=== PATIENT | female | born 1950 | race Caucasian/White ===

== ENCOUNTER → 2022-02-20 | Outpatient (CLI) | payer MEDICARE, OTHER ==
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
== END | disposition home or self-care (01) ==
LOC: RADCTMAIN 16:46
PROVIDERS: ATTEND Orthopaedic Surgery
DX: M48.061 Spinal stenosis, lumbar region without neurogenic claudication (principal); M51.36 Other intervertebral disc degeneration, lumbar region
CPT/HCPCS: 72131

== ENCOUNTER → 2022-05-05 | Outpatient (CLI) | payer MEDICARE, OTHER | END | disposition home or self-care (01) | LOC: LABPAT 09:56 | PROVIDERS: ATTEND Orthopaedic Surgery | DX: Z01.812 Encounter for preprocedural laboratory examination (principal); M47.816 Spondylosis without myelopathy or radiculopathy, lumbar region; Z22.322 Carrier or suspected carrier of Methicillin resistant Staphylococcus aureus | CPT/HCPCS: 87070 ==

== ENCOUNTER 2022-05-13 07:55 | Day surgery (SDC) | payer MEDICARE, OTHER ==
[2022-05-08 15:29] VITALS: BMI 37.5
--- NOTE | 2022-05-12 14:09 | P.HPOR ---
History of Present Illness H&P Date: 05/07/22 .D:Date: 05/07/22 : 02:11pm .T:Title: [facility] History and Physical Date of :[birth year] Age: 71 year Height: 5'3" Weight: 212 lbs BP:122/72 BMI: 37.55 kg/m2 Occupation: Retired VAS: 0 CHIEF COMPLAINT: Recheck low back pain DOI:Chronic DOS: None Duration of current treatment regiment: >1 year HISTORY: Xrays No new xrays taken in office Trauma or injury No Work-Related No Pain description aching, sharp. Location posterior diffuse Patient notes that their pain radiates to bilateral lower extremities Activity Modification yes Hand Dominance right TREATMENTS COMPLETED: 6 weeks of PT completed? Month and Year of last PT date? 2020 Yes How many sessions? 12 Did it help? No Physician recommended home exercise completed? Duration of HEP course: Current yes Patient has trialed the physician directed home exercise program for (without) relief of their symptoms. Medications yes List: Tramadol, Tylenol without relief of her symptoms. Alternative interventions Chiropractic: Massage therapy: No R.I.C.E: No Brace: No Injections No RFA: No SUBJECTIVE: Ms. Gaytan returns to the office for a recheck of their planned L4-S1 decompression and fusion. Patient reports no changes to her symptoms since the time of the last appointment. The patient continues to complain of continued low back pain into the right lower extremity. Overall the patient has seen a progressive increase in symptoms since their onset. Ms. Gaytan symptoms are exacerbated with prolonged standing and ambulation. Overall the patient has seen a progressive increase in symptoms since their onset. Patient is having severe sleep disturbances as well due to their ongoing pain and associated symptoms. Regarding treatments, the patient has previously trialed all abovementioned treatment modalities without relief. Patient denies trialing any other mo dalities at this time. For their symptoms, the patient has been taking Tramadol and . Otherwise the patient denies any f/c/sob/cp, no bladder or bowel retention/incontinence, no perineal numbness/tingling, and ambulates independently. HISTORY: Ms. Gaytan returns to the office on 02/14/22 to discuss possible surgical intervention for her low back. Since the time of the last appointment the patient reports no improvements to her symptoms, noting continued low back pain into the right lower extremity. Overall the patient has seen a progressive increase in symptoms since their onset. Ms. Gaytan symptoms are exacerbated with prolonged standing and ambulation, due to this they notes that it is increasingly difficult for Ms. Gaytan to complete many of their daily tasks. Patient is having severe sleep disturbances as well due to their ongoing pain and associated symptoms. Regarding treatments, the patient has previously trialed all abovementioned treatment modalities without relief of her symptoms. Patient denies trialing any other modalities at this time. Otherwise the patient denies any f/c/sob/cp, no incision concerns, no bladder or bowel retention/incontinence, no perineal numbness/tingling, and ambulates independently. Ms. Gaytan last returned to the office on 01/22/2022 for a recheck of their low back pain. Since the time of the last appointment the patient reports continued lumbar pain ongoing for 6 years with no known injury or trauma to indicate an exact onset of their symptoms. In addition to their lumbar pain, they do report that it radiates into the right lower extremity, associated without numbness and tingling through the leg. Furthermore the patient reports that Overall the patient has seen a progressive increase in symptoms since their onset. Ms. Gaytan symptoms are exacerbated with prolonged standing and activity, due to this they notes that it is increasingly difficult for Ms. Gaytan to complete many of their daily tasks. Patient is having severe sleep disturbances as well due to their ongoing pain and associated symptoms. Regarding treatments, the patient has previously trialed all abovementioned treatment modalities. Patient denies trialing any other modalities at this time. Otherwise the patient denies any f/c/sob/cp, no incision concerns, no bladder or bowel retention/incontinence, no perineal numbness/tingling, and ambulates independently. Ms. Gaytan was last seen on 08/01/2020 regarding low back pain. Patient denies any specific injury. She states that she has had intermittent back pain for 6 years. She reports low back pain that radiates into her right hip and into her right thigh and knee. She notes groin pain. She had a previous right hip steroid injection under fluoroscopy with minimal relief. She had 3 previous lumbar spine steroid injections with minimal relief. Patient is currently in physical therapy with some relief. Patient is ambulating with a cane. She states she completed 24 visits of PT with improvement, although marginal. She states difficulty still with bending and lifting as this causes strain on her back. She has pain in her hip as well that goes into her groin and does not seem to improve with PT, and actually gets worse. She denies any bowel or bladder issues. She denies any pain down the legs into the feet. No new numbness/tingling. No other issues. This 70 year old female initially presented on 05/02/2021 with low back pain. Patient denies any specific injury. She states that she has had intermittent back pain for 6 years. She reports low back pain that radiates into her right hip and into her right thigh and knee. She notes groin pain. She had a previous right hip steroid injection under fluoroscopy with minimal relief. She had 3 previous lumbar spine steroid injections with minimal relief. Patient is currently in physical therapy with some relief. Patient is ambulating with a cane. The patients' past social, medical, family, surgical history, as well as review of systems, have been reviewed. Please refer to the Neurosurgery History and Physical form that has been scanned in to our electronic medical record system. 16 points review of systems completed and as stated in HPI, all other systems reviewed are negative. Social History: Reviewed, see appropriate section of the chart for details. P3 Social History: Smoking: former smoker P3 Smoking Quit Date: 1981 Alcohol: occasional alcohol P3 Family History: Reviewed, see appropriate section of the chart for details. P2 Past Medical History: Reviewed, see appropriate section of the chart for details. [id number] Medications: Rx: albuterol sulfate HFA 90 mcg/actuation aerosol inhaler Ref: 0 Rx: amLODIPine 5 mg tablet Ref: 0 Rx: atorvastatin 20 mg tablet Ref: 0 Rx: escitalopram 10 mg tablet Ref: 0 Rx: omeprazole magnesium 20 mg capsule,delayed release Ref: 0 Rx: triamterene 50 mg capsule Ref: 0 Rx: traMADol Ref: 0 P1 PHYSICAL EXAMINATION: General: Awake, alert, appropriate for age, in no acute distress. HEENT: No unusual neck masses around region of lateral neck triangle, thyroid, supraclavicular groove Extremities: Skin warm and dry without acute lesions, coloration, temperature, skin intact, no tenderness or erythema Integument: Hairy patches: ABSENT Dorsal skin dimples: ABSENT Cafe au lait spots: ABSENT Palpation: Please see Pain drawing on Intake sheet for further detail. Midline spinal tenderness: YE6es, through lumbar region Cervical Tenderness: No E6 Paralumbar tenderness: No E6 Parathoracic tenderness: No E6 Buttocks tenderness: No E6 Sacroiliac Tenderness: No Palpable stepoff at L4-L5 POSTURAL and MUSCULO-SKELETAL EVALUATION: Coronal Balance: NEUTRAL Recumbent testing: Patient is able to lay flat on back Sagittal Balance: NEUTRAL Shoulder Profile: LEVEL Pelvic Girdle: LEVEL Neck ROM: UNRESTRICTED Lumbar ROM: RESTRICTED Shoulder ROM: Symmetrical Hip ROM: Symmetrical Knee ROM: Symmetrical Hands: Normal appearance, symmetrical Feet: Normal appearance, Symmetrical VASCULAR STATUS : LEFT RIGHT Wrist Pulses INTACT INTACT Pedal Pulses (Dors. pedis & post.tibialis) INTACT INTACT Color NORMAL NORMAL Edema Absent Absent NEUROLOGIC EXAMINATION: Mental Status:Awake and alert, fully oriented, with normal attention, concentration and memory, and fluent, appropriate speech. Cranial Nerves: I: Olfactory not tested. II: Visual acuity normal, no visual field deficit noted with confrontation. III,IV: Normal pupillary reflexes & intact extraocular movements without nystagmus. V,: Intact symmetrical facial sensation. VII: Intact symmetrical facial motor movement VIII: Hearing intact. IX,X: Intact gag, swallow, & normal voice. XI: Sternocleidomastoid, trapezius function intact. XII: Tongue midline with normal movements. L'hermitte's Sign: Negative / absent Spurling'Sign: Absent bilaterally. Cubital percussion test: Absent bilaterally. Benito-Tinel sign - Carpal region: Absent bilaterally. Straight Leg Raising: Absent bilaterally. Crossed straight leg raise: negative O8 MOTOR EXAM (0-5/5, N/T) UPPER EXTREMITY Shoulder Abduction Biceps Triceps Wrist Extension Hand Intrinsics Stained Glass Window Designer Right 5/5 5/5 5/5 5/5 5/5 5/5 Left 5/5 5/5 5/5 5/5 5/5 5/5 LOWER EXTREMITY Hip Flexion Knee Extension Knee Flexion DF PF EHL FHL Right 4/5 4/5 4/5 4/5 4/5 5/5 5/5 Left 4/5 4/5 4/5 4/5 45 5/5 5/5 REFLEXES(0-4/2, NT)Upper ExtremityLower Extremity Right 2 2 Left 2 2 Pathological Reflexes RIGHT LEFT Benito's Absent Absent Clonus Absent Absent Babinski Absent Absent # Indicates mechanical impairment Muscle appearance: Symmetrical, without signs of atrophy or dystrophy. Sensory system (0-4, N/T) Test type RU MICHAEL RL LL Joint-Position 2 2 2 2 Vibration 2 2 2 2 Pain & LT sense 2 2 2 2 Dermatomal Deficit: None None None None Gait and Functional Evaluation: Ambulatory aids: Independent Romberg's test: Intact bilaterally Toe heel walk / heel-toe walk intact while maintaining satisfactory balance? yes Squatting/straightening w/o assistance to a min of 60 degree knee flexion? No Single leg stance: intact Trendelenburg sign negative bilaterally Hand and finger dexterity intact bilaterally? yes Disdiadochokinesis examination negative bilaterally? yes RADIOGRAPHIC STUDIES: XRay 5 views taken on 01/22/22 at [facility] of Lumbar Spine and Pelvis: this images are reviewed and demonstrates spondylolisthesis grade 1 to grade 2 of L4 on L5. This measures in flexion and extension films to go from 8.8 mm standing to 12.75 mm in flexion. There is foraminal stenosis related to this. L5-S1 shows spondylosis as well as disc height collapse at L4 5 and L5-S1. There is facet hypertrophy as well as facet arthrosis noted to this area. No acute fracture or dislocation is otherwise noted. AP pelvis demonstrates a congruent pelvis good hip replacement on the right with hardware placement and good position no fracture or dislocation XRay 5 views taken on 05/02/2020 at [facility] of Lumbar Spine and Pelvis: AP lateral flexion extension films of the lumbar spine obtained and reviewed in the office today. This demonstrates a grade 2 spondylolisthesis of L4 5. There is spondylosis at L5-S1. There is accentuation of the slip on flexion films and slight reduction and extension films. Overall alignment is fairly well maintained and sagittal coronal planes otherwise. There are no fractures to secretions or lesions noted. 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 There are no fractures or dislocations noted. The pelvis is level. MRI without contrast from 05/02/2019 at [facility] reveals: MRI demonstrates listhesis of L4 5 grade 2 with foraminal as well as central stenosis.There is grade I-II spondylolisthesis of L5-S1 as well. L4-5 measures 6 mm and L5-S1 measures 4 mm translation anterior. There is stenosis related to this as well as ligamental hypertrophy, facet hypertrophy and overgrowth. There are boggy facets at these levels as well. No fractures noted. No lesions noted. IMPRESSION: It was my pleasure to have seen and examined Emily. I reviewed the patient's clinical syndrome, physical findings, and imaging studies during the appointment today. It is my impression that the patient has a diagnosis of. 1. L4-S1 spondylosis with radiculopathy 2. L4-L5 and L5-S1 Grade 2 spondylolisthesis 3. neurogenic claudication 4. Mechanical low back pain I outlined the natural course history without intervention and various interventional options. PLAN: Based on my findings I suggest the following course of action: -Advised patient to continue with supplements, health maintenance, and home exercise programs. Patient expressed understanding and will continue with these modalities. -I discussed treatment options with the patient, including operative and non- operative options, and they have elected to proceed with the following surgical procedure: lumbar (L4-S1) Open Decompression and Fusion The indications, risks, benefits, and alternatives to surgery were discussed with the patient at length. Specifically (but not limited to) the risks of infection, stiffness, recurrence of symptoms, need for revision surgery, local n umbness, neurovascular injury, and blood clots were discussed. The patient's questions were answered.The patient would like to proceed with scheduling the abovementoioned procedure. All questions and concerns were addressed. -CT of the lumbar spine w/o for bony anatomy and surgical planning Pre-op Checklist -Pt needs to be cleared by PCP, cardio , pulmonary and heme/once within 1 month of surgery as well as any other providers that they see on a regular basis (dental hygiene professor, upholstery instructor, etc.) -Pt will obtain pre operative labs -Pt will optimize their diet, exercise and lifestyle preoperatively as outlined in Health Maintenance education form given to pt. -If applicable, pt will have stopped any nicotine products at least 4 weeks prior to surgery and commit to at least 3 moths post surgery without any of these products. -Discussion of risks and benefits as outlined in the Spine Surgery Risk Review Spine Surgery Risk Review Ms. Gaytan is presenting for evaluation of low back pain. It was my pleasure to have seen and examined Ms. Gaytan. In our visit today we have had a chance to go over subjective complaints, physical examination findings and treatments including the natural course history without intervention and various interventional options. The patients imaging demonstrates: XRay 5 views taken on 01/22/22 at [facility] of Lumbar Spine and Pelvis: this images are reviewed and demonstrates spondylolisthesis grade 1 to grade 2 of L4 on L5. This measures in flexion and extension films to go from 8.8 mm standing to 12.75 mm in flexion. There is foraminal stenosis related to this. L5-S1 shows spondylosis as well as disc height collapse at L4 5 and L5-S1. There is facet hypertrophy as well as facet arthrosis noted to this area. No acute fracture or dislocation is otherwise noted. AP pelvis demonstrates a congruent pelvis good hip replacement on the right with hardware placement and good position no fracture or dislocation XRay 5 views taken on 05/02/2020 at [facility] of Lumbar Spine and Pelvis: AP lateral flexion extension films of the lumbar spine obtained and reviewed in the office today. This demonstrates a grade 2 spondylolisthesis of L4 5. There is spondylosis at L5-S1. There is accentuation of the slip on flexion films and slight reduction and extension films. Overall alignment is fairly well maintained and sagittal coronal planes otherwise. There are no fractures to secretions or lesions noted. 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 There are no fractures or dislocations noted. The pelvis is level. MRI without contrast from 05/02/2019 at [facility] reveals: MRI demonstrates listhesis of L4 5 grade 2 with foraminal as well as central stenosis.There is grade I-II spondylolisthesis of L5-S1 as well. L4-5 measures 6 mm and L5-S1 measures 4 mm translation anterior. There is stenosis related to this as well as ligamental hypertrophy, facet hypertrophy and overgrowth. There are boggy facets at these levels as well. No fractures noted. No lesions noted. On physical exam, Ms. Gaytan demonstrates restricted lumbar ROM including flexion/extension/twisting due to pain. Patient does also demonstrate bilateral lower extremity weakness which is impacting her ability to complete most functional testing. Patient ambulating independently. I have explained to the patient that as their condition progresses it will cause further neurological deficits and eventual paralysis. Based on the patients imaging, physical exam, and the rapid progression and disabling nature of their symptoms, at this time I recommend surgery in the form or a: lumbar (L4-S1) Decompression and Fusion . I discussed the risk and benefits of this procedure at length with Ms. Gaytan. The patient agreed to considered pursuing the procedure abovementioned. Prior to surgery, she should follow up with her PCP (Cardio, ID, IM etc) for clearance. Questions were invited and answered, and the patient wishes to proceed as outlined below. Currently, I am recommendin.lumbar (L4-S1) Open Decompression and Fusion 2.Follow up with PCP for surgical clearance 3.Review of surgical risks and benefits as well as an educational packet on the proposed surgical procedure. Risks: All surgical procedures come with inherent risks, including those related to positioning, anesthesia, intraoperative findings, and postoperative complications. It is important to understand that surgery does not come with any guarantee of a successful outcome as complications and adverse events are always possible. The patient was given a handout in office today discussing the surgical procedure and risks associated with the intervention, both of which were discussed with the patient. These risks include but are not limited to the following: * Experiencing same, different or even worse symptoms in back, neck, arms, or legs compared to before surgery. Requiring further surgery or other forms of treatment presently or at some time in the future at same or other levels of the intended spine surgery. On an extreme but fortunately relatively rare basis severe complication such as blindness, stroke, heart attack, temporary and/or permanent nerve injury, paralysis, coma, or may occur, sometimes without known explanation. Surgical complications may include but are not limited to risk of infection, fluid accumulation in the surgical dissection site, including a seroma or hematoma, that requires additional surgery, wound drainage, bleeding, new numbness or weakness, vision changes/loss, spinal fluid leakage, non-healing and/or infected incision, headaches, difficulty or inability to swallow, hoarseness, hemopneumothorax, pneumothorax, impotence, retrograde ejaculation, vaginal dryness; injury to nerves, spinal cord, blood vessels, lymphatics or other vital organs (i.e., bowel injury, injury to the great vessels); heterotopic bone formation; complications related to the hardware such as screws, rods, cages including misplaced hardware, device failure, instrumentation at the wrong spine level, hardware fracture/breakage, or hardware loosening; vertebral failure of the spinal column above or below the newly placed hardware; retained surgical instrumentations or devices and the need for further surgery. * Medical risks of the planned spine surgery include but are not limited to generalized Infections to the whole body or local areas outside of the surgical site (sepsis), heart attack, bleeding, anaphylaxis, meningitis, seizure, epilepsy, hearing loss, burn christianson, laceration of the head or other areas of the body, bruising, hypersensitivity of the skin, bladder over distension; allergic reaction; shoulder injury related to positioning; fat, blood and air clots to other areas of the body like heart, lungs, brain; failure of internal organs such as lungs, kidneys, liver and excessive bleeding. If blood transfusions are necessary, note that transfusions may cause intolerance reactions such as anaphylaxis or other complex reactions. Despite best efforts, the results of spine surgery might not heal in terms of bone, soft tissues such as skin, fascia, ligaments, and joints. Additionally, in order to achieve best possible results, spine surgery may be carried out beyond the initially planned levels and involve decompression, fusion including insertion of hardware at levels other than the original intended area of surgical interest change some portions of the procedure in order to ensure the best possible outcomes. With spine surgery and spinal fusion, there are different off label uses of instrumentation (devices, implants and hardware) as well as biological substances (bone morphogenic proteins, demineralized bone matrix) as well as using extra bone from allograft sources (i.e. cadaver bone) or autograft (iliac crest bone, ribs, or the spine itself). The patient has been given information about these practices and their inherent risks and benefits. [facility] is an educational center that serves as a training facility for neurosurgical and orthopedic [employer] and Nursing students. Physician assistants are medically trained surgical providers who function in the outpatient, inpatient, and operating room setting under the direct supervision of the attending surgeon. [facility] has multiple operating rooms with single and overlapping rooms running daily. They currently function under the required guidelines as produced by the Senate Finance Committee with regards to the overlapping rooms and will continue to comply with changes to this policy as they occur. The requirements include and are complied with as follows: (1) the critical portions of the overlapping rooms will not occur at the same time, (2) the attending physician will be physically present during the critical portions of the procedure and immediately available during the entire case, and (3) a back-up attending is designated should the primary attending not be immediately available. The patient has had a chance to review all the listed information, has been given print outs detailing this information, and has had all his/her questions answered to their satisfaction. It was my pleasure to have seen and examined Ms. Gaytan. In our visit today we have had a chance to go over my understanding of our patient's current condition, the natural course history without intervention and various interventional options. Questions were invited and answered, and the patient wishes to proceed as outlined above. I have seen and examined the patient for 25 minutes and we have spent more than 50% of the time in repeat and detailed counseling about the patient's condition, its natural course history with out and as much as can be predicted with surgery and re-review of various surgical treatment options. In conclusion, Ms. Gaytan requested we proceed with the above suggested surgery and are willing to accept risks and limitations of the suggested surgery as nature of the disease process and our best attempts at treatment for the condition. Thank you again for allowing us to be part of your patient's care. Please don't hesitate to contact me if you have any further questions. Signed and authenticated by: Darshan Mayes DO Follow-up: 2 weeks post-op Patient Education: (Informational booklet, instructions, etc) given at today's appointment: Yes .ED:Patient Education: Y Plan at next visit: review progress Medications Reviewed: YES In our visit today Ms. Gaytan and I have had a chance to go over my understanding of the patient's current condition, the natural course history without intervention and various interventional options. Questions were invited and answered, and the patient wishes to proceed as outlined above. I will be sure to keep you updated afterMs. Gaytan returns here for further follow-up. Thank you again for your referral. Please do not hesitate to contact me if you have any further questions. Signed and authenticated by: Darshan [facility] [address] [facility], [address] [address] This message is confidential, intended only for the named recipient(s) and may contain information that is privileged or exempt from disclosure under applicable law. If you are not the intended recipient(s), you are notified that the dissemination, distribution or copying of this information is strictly prohibited. If you received this message in error, please notify the sender then delete this message. Patient verbalizes understanding of the information discussed. The above note was initiated by Darshan Yang, physician recording assistant chief engineer for Dr. Darshan Mayes. This note has been reviewed by Dr. Mayes, who has made his personal changes and impressions for this document. 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, schleroderma,oral steroid Apr 2022,hx anemia with iron infusions,hx skin [id number] chemo/radiation,basal cell skin ca History of Any Multi-Drug Resistant Organisms: None Reported Past Surgical History: Joint Replacement Additional Past Surgical History / Comment(s): rt hip replacement,ema cataracts,lt knee replacement,d&c,left hand surgery,EGDs,fibroma removed left breast Past Anesthesia/Blood Transfusion Reactions: Postoperative Nausea & Vomiting (PONV) Additional Past Anesthesia/Blood Transfusion Reaction / Comment(s): states "had a vagal response w/ air induction for EGD and heart stopped for approx 5 sec".no hx blood transfusions Smoking Status: Former smoker - Past Family History Mother Family Medical History: No Reported History Medications and Allergies Home Medications Medication Instructions Recorded Confirmed Type Albuterol Inhaler [Ventolin Hfa 1 - 2 puff INHALATION Q6H PRN 05/08/22 05/08/22 History Inhaler] Atorvastatin [Lipitor] 20 mg PO DAILY 05/08/22 05/08/22 History Calcium Carbonate/Vitamin D3 1 each PO DAILY 05/08/22 05/08/22 History [Calcium 600 mg-D3 10 Mcg (400 Iu)] Escitalopram [Lexapro] 10 mg PO QAM 05/08/22 05/08/22 History Hydroxychloroquine Sulfate 200 mg PO QAM 05/08/22 05/08/22 History [Plaquenil] Magnesium 250 mg PO HS 05/08/22 05/08/22 History Omeprazole 20 mg PO QAM 05/08/22 05/08/22 History Telmisartan/Hydrochlorothiazid 1 tab PO QAM 05/08/22 05/08/22 History [Telmisartan-Hctz 80-25 mg Tab] Triamcinolone Acetonide 1 spray EA NOSTRIL DAILY 05/08/22 05/08/22 History [Triamcinolone Acetonide 0.055MG Nasal] Ubidecarenone [Co Q-10] 100 mg PO DAILY 05/08/22 05/08/22 History Vitamin E (Dl,Tocopheryl Acet) 1,000 unit PO DAILY 05/08/22 05/08/22 History [Vitamin E (1000 Iu = 450 MG)] amLODIPine [Norvasc] 5 mg PO QAM 05/08/22 05/08/22 History hydrOXYzine HCL [Atarax] 25 mg PO TID PRN 05/08/22 05/08/22 History traMADol HCL 50 mg PO DAILY PRN 05/08/22 05/08/22 History Acetaminophen Tab [Tylenol Tab] 1,000 mg PO BID PRN 05/09/22 05/09/22 History Allergies Allergy/AdvReac Type Severity Reaction Status Date / Time morphine AdvReac Itching Verified 05/08/22 15:03 Physical Examination Osteopathic Statement: *. No significant issues noted on an osteopathic structural exam other than those noted in the History and Physical/Consult.
[~2022-05-13 07:55] MED LIST: ACETAMINOPHEN TAB 500 MG TAB PO PRN; GABAPENTIN 300 MG CAP PO PRN; HYDROmorphone 0.5 MG/0.5 ML SYRINGE IVP PRN; LIDOCAINE 1% (10MG/ML) FOR IV START INTRADERMA PRN; MIDAZOLAM 2 MG/2 ML VIAL IV PRN; ONDANSETRON 4 MG/2 ML VIAL IVP ONE; ONDANSETRON 4 MG/2 ML VIAL IVP PRN; TRANEXAMIC ACID IN NACL,ISO-OS 1,000 MG in SALINE 1 100ML.BAG IVPB PRN
[2022-05-13] MEDS: DEXAMETHASONE SOD PHOSPHATE 4 MG/ML 1 ML VIAL IV ONE ×2 (08:44→17:15)
[2022-05-13] MEDS: LACTATED RINGERS 1,000 ML IV SCH ×3 (09:00→17:15)
[2022-05-13 09:06] LABS: INR 0.9 (<1.2); Partial Thromboplastin Time 24.8 sec (22.0-30.0); Prothrombin Time 9.9 sec (9.0-12.0)
[2022-05-13] MEDS ORDERED: TRANEXAMIC ACID IN NACL,ISO-OS 1,000 MG/100 ML BAG ONE (09:06)
[2022-05-13] MEDS ORDERED: PHENYLEPHRINE-0.9% NACL SYG 1,000 MCG/10 ML SYRINGE ONE (09:06)
[2022-05-13] MEDS ORDERED: ePHEDrine 50 MG/ML 1 ML VIAL ONE (09:06)
[2022-05-13] MEDS ORDERED: HYDROmorphone (PF) 1 MG/ML ONE (09:06)
[2022-05-13] MEDS ORDERED: SUCCINYLCHOLINE CHLORIDE 200 MG/10 ML VIAL IV ONE (09:06)
[2022-05-13] MEDS ORDERED: fentaNYL (PF) 50 MCG/ML 2 ML AMP ONE (09:06)
[2022-05-13] MEDS ORDERED: WATER FOR INJECTION, STERILE 10 ML VIAL IV ONE (09:06)
[2022-05-13] MEDS ORDERED: NEOSTIGMINE 1 MG/ML 10 ML VIAL ONE (09:06)
[2022-05-13] MEDS ORDERED: MIDAZOLAM 2 MG/2 ML VIAL ONE (09:06)
[2022-05-13] MEDS ORDERED: ROCURONIUM 10 MG/ML (5 ML VIAL) IV ONE (09:06)
[2022-05-13] MEDS ORDERED: GLYCOPYRROLATE 0.2 MG/ML 2 ML VIAL ONE (09:06)
[2022-05-13] MEDS ORDERED: PROPOFOL 10 MG/ML 20 ML VIAL IV ONE (09:06)
[2022-05-13] MEDS ORDERED: LIDOCAINE 2% INJ 20 MG/ML (2 ML VIAL) ONE (09:06)
[2022-05-13] MEDS ORDERED: THROMBIN (BOVINE) 5,000 UNIT VIAL TOPICAL ONE (09:11)
[2022-05-13] MEDS ORDERED: GELATIN SPONGE,ABSORB (LARGE) 1 EACH SPONGE TOPICAL ONE (09:11)
[2022-05-13] MEDS ORDERED: BUPIVACAIN-EPI 0.25%-1:200,000 30 ML VIAL SQ ONE (09:11)
[2022-05-13] MEDS ORDERED: ceFAZolin 3,000 MG in SODIUM CHLORIDE 0.9% IRRIGATIO 3,000 ML IRRIGATION ONE (10:00)
[2022-05-13] MEDS ORDERED: LACTATED RINGERS 1,000 ML IV ONE ×2 (10:15→10:28)
[2022-05-13] MEDS ORDERED: GENTAMICIN 80 MG in SODIUM CHLORIDE 0.9% IRRIGATIO 3,000 ML IRRIGATION ONE (10:31)
[2022-05-13] MEDS ORDERED: VANCOMYCIN 1,000 MG VIAL MISCELLANE ONE (11:40)
--- NOTE | 2022-05-13 13:14 | FL ---
EXAMINATION TYPE: FL guidance operating room DATE OF EXAM: 05/13/2022 HISTORY: Fluoroscopy time 62 seconds of fluoroscopy provided. IMPRESSION: 1. Fluoroscopy time.
[2022-05-13] MEDS ORDERED: HYDROmorphone 0.5 MG/0.5 ML SYRINGE IVP PRN (13:23)
[2022-05-13] MEDS ORDERED: HYDROcodone/APAP 5-325MG 1 EACH TAB PO PRN (13:23)
[2022-05-13] MEDS ORDERED: SENNOSIDES-DOCUSATE SODIUM 1 EACH TAB PO PRN (13:23)
[2022-05-13] MEDS ORDERED: MAGNESIUM HYDROXIDE 2,400 MG/10 ML CUP PO PRN (13:23)
[2022-05-13] MEDS ORDERED: HYDROmorphone 1 MG/ML 1 ML SYRINGE IVP PRN (13:23)
--- NOTE | 2022-05-13 15:55 | CT ---
EXAMINATION TYPE: CT lumbar spine wo con CT DLP: 1603.6 mGycm, Automated exposure control for dose reduction was used. DATE OF EXAM: 05/13/2022 3:34 PM COMPARISON: CT lumbar spine 02/20/2022. CLINICAL INDICATION:Female, 72 years old with history of s/p L4-S1 decompr/fusion; PHH, post op lumba r fusion TECHNIQUE: Multiple axial images were obtained from the midportion of T11 through the sacroiliac breana nts. Soft tissue and bone windows in coronal and sagittal planes were obtained and reviewed. FINDINGS: Alignment: There are 5 lumbar type vertebral bodies identified mild retrolisthesis of T12 on L1, L1 o n L2, and grade 1/2 anterolisthesis of L4 on L5 redemonstrated. Bone/soft tissues: No evidence of fracture is identified. Post surgical changes with bilateral pedic ular screws and rods and laminectomies involving L4-S1. There are associated disc fusion cages. Hardw are appears intact Posterior back skin pat with subcutaneous gas related to surgery. No organized fluid collections identified. A drainage catheter is identified with distal tip not well visualized due to streak artifact from surgical hardware. Degenerative changes of the bilateral SI joints. Discs: T12-L1: No spinal canal or neural foraminal stenosis is identified. L1-L2: No spinal canal or neural foraminal stenosis is identified. L2-L3: Disc bulge and facet joint arthropathy with mild spinal canal stenosis and mild bilateral neur al foraminal stenosis L3-L4: Disc bulge and facet joint arthropathy result in mild spinal canal stenosis and mild bilateral neural foraminal stenosis. L4-L5: Postsurgical changes with grade 1/2 anterolisthesis. No significant central canal stenosis or neural foraminal stenosis with the limitations of streak artifact. L5-S1: Postsurgical changes with no significant central canal stenosis or neural foraminal stenosis w ith the limitations of streak artifact. Other: Atherosclerotic calcification of the aorta. IMPRESSION: 1. Postsurgical changes from posterior fusion of L4-S1. Hardware appears intact. 2. Multilevel degenerative disc disease as described above.
[2022-05-13] MEDS: ACETAMINOPHEN TAB 325 MG TAB PO SCH ×2 (17:18→23:37)
[2022-05-13] MEDS ORDERED: ALBUTEROL NEBULIZED 2.5 MG/3 ML INHALATION PRN (18:07)
[2022-05-13] MEDS ORDERED: hydrOXYzine HCL 25 MG TAB PO PRN (18:07)
--- NOTE | 2022-05-13 18:11 | P.CONS ---
History of Present Illness - Reason for Consult Consult date: 05/13/22 med management - History of Present Illness Patient is a 72-year-old female with history of hypertension, dyslipidemia presenting for elective lumbar sacral decompressive surgery. [facility] physicians consulted for medical management. She claims that she has back pain post surgery. She denies any CP, SOB, abdominal pain, bowel or urinary complaints. She is a former smoker, occasional alcohol use, and denies any illicit drug use. Currently has a farrell catheter in place. Patient seen and examined at bedside. Pertinent positives and negatives as discussed in HPI, a complete review of systems was performed and all other systems are negative. Vital signs reviewed General: nontoxic, no distress, appears at stated age Derm: warm, dry, incision dry, intact, and clean, drain in place Head: atraumatic, normocephalic, symmetric Eyes: EOMI, no lid lag, anicteric sclera, pupils equal round reactive to light ENT: Nose and ears atraumatic Neck: No thyromegaly, supple Mouth: no lip lesion, mucus membranes moist Cardiovascular: S1S2 reg, no murmur, no edema Lungs: clear to auscultation bilateral, no rhonchi, no rales, no wheeze, no accessory muscle use, on 2L O2 Abdominal: soft, nontender to palpation, no guarding, no appreciable organomegaly Ext: no gross muscle atrophy, muscle strength muscle strength 5 out of 5 in all 4 extremities, no contractures Neuro: CN II-XII grossly intact Psych: Alert, oriented, appropriate affect Assessment/Plan: Status post spinal surgery -Defer pain management and DVT prophylaxis to primary surgical service Hypertension - hold home medications given lower BP Chronic medical problems: Dyslipidemia Mood disorder Scleroderma - Continue home medications Thank you for allowing us to participate in the care of this pleasant patient. Do not hesitate to contact us with questions. Someone can be reached from the [facility] hospitalist group all hours of the day at [phone] or via [employer]. 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, schleroderma,oral steroid Apr 2022,hx anemia with iron infusions,hx skin [id number] chemo/radiation,basal cell skin ca History of Any Multi-Drug Resistant Organisms: None Reported Past Surgical History: Joint Replacement Additional Past Surgical History / Comment(s): rt hip replacement,ema cataracts,lt knee replacement,d&c,left hand surgery,EGDs,fibroma removed left breast Past Anesthesia/Blood Transfusion Reactions: Postoperative Nausea & Vomiting (PONV) Additional Past Anesthesia/Blood Transfusion Reaction / Comm: states "had a vagal response w/ air induction for EGD and heart stopped for approx 5 sec".no hx blood transfusions Past Psychological History: Anxiety, Bipolar Smoking Status: Former smoker Past Alcohol Use History: Occasional Additional Past Alcohol Use History / Comment(s): quit smoking >40 yrs ago Past Drug Use History: None Reported - Past Family History Mother Family Medical History: No Reported History Medications and Allergies Home Medications Medication Instructions Recorded Confirmed Type Albuterol Inhaler [Ventolin Hfa 1 - 2 puff INHALATION Q6H PRN 05/08/22 05/13/22 History Inhaler] Atorvastatin [Lipitor] 20 mg PO DAILY 05/08/22 05/08/22 History Calcium Carbonate/Vitamin D3 1 each PO DAILY 05/08/22 05/08/22 History [Calcium 600 mg-D3 10 Mcg (400 Iu)] Escitalopram [Lexapro] 10 mg PO QAM 05/08/22 05/13/22 History Hydroxychloroquine Sulfate 200 mg PO QAM 05/08/22 05/08/22 History [Plaquenil] Magnesium 250 mg PO HS 05/08/22 05/08/22 History Omeprazole 20 mg PO QAM 05/08/22 05/08/22 History Telmisartan/Hydrochlorothiazid 1 tab PO QAM 05/08/22 05/08/22 History [Telmisartan-Hctz 80-25 mg Tab] Triamcinolone Acetonide 1 spray EA NOSTRIL DAILY 05/08/22 05/13/22 History [Triamcinolone Acetonide 0.055MG Nasal] Ubidecarenone [Co Q-10] 100 mg PO DAILY 05/08/22 05/08/22 History Vitamin E (Dl,Tocopheryl Acet) 1,000 unit PO DAILY 05/08/22 05/08/22 History [Vitamin E (1000 Iu = 450 MG)] amLODIPine [Norvasc] 5 mg PO QAM 05/08/22 05/08/22 History hydrOXYzine HCL [Atarax] 25 mg PO TID PRN 05/08/22 05/13/22 History traMADol HCL 50 mg PO DAILY PRN 05/08/22 05/13/22 History Acetaminophen Tab [Tylenol Tab] 1,000 mg PO BID PRN 05/09/22 05/13/22 History Allergies Allergy/AdvReac Type Severity Reaction Status Date / Time morphine AdvReac Itching Verified 05/13/22 08:22 STEROIDS AdvReac Unknown Uncoded 05/13/22 08:47 Physical Exam Vitals: Vital Signs Temp Pulse Pulse Resp BP BP Pulse Ox 05/13/22 15:12 79 16 98/52 95 05/13/22 14:57 77 16 96/50 94 L 05/13/22 14:42 81 16 98/53 98 05/13/22 14:27 75 16 116/53 94 L 05/13/22 14:12 77 16 155/55 95 05/13/22 13:57 78 16 106/54 95 05/13/22 13:42 80 16 122/58 100 05/13/22 13:27 97.0 F L 82 14 123/56 100 05/13/22 08:32 98.1 F 99 16 140/63 98 Intake and Output 05/13/22 05/13/22 05/13/22 06:59 14:59 22:59 Intake Total 2652 Output Total 850 200 Balance 1802 -200 Intake: IV 2652 Output: Urine 450 200 Estimated Blood Loss 400 Other: Weight 101 kg 101 kg
[2022-05-13] MEDS: HYDROcodone/APAP 10-325MG 1 EACH TAB PO PRN (21:30)
[2022-05-13] MEDS: MAGNESIUM OXIDE 400 MG TAB PO SCH (21:37)
[2022-05-14] MEDS: CYCLOBENZAPRINE 5 MG TAB PO PRN ×2 (01:39→12:19)
[2022-05-14 05:25] LABS: Basophils % (A) 0 %; Eosinophils # (A) 0.1 k/uL (0-0.7); Eosinophils % (A) 1 %; HCT 32.6 % (34.0-46.0); HGB 10.4 gm/dL (11.4-16.0); Lymphocytes # (A) 1.1 k/uL (1.0-4.8); Lymphocytes % (A) 10 %; MCH 30.6 pg (25.0-35.0); MCHC 32.1 g/dL (31.0-37.0); MCV 95.5 fL (80.0-100.0); Monocytes # (A) 0.6 k/uL (0-1.0); Monocytes % (A) 6 %; Neutrophils # (A) 8.5 k/uL (1.3-7.7); Neutrophils % (A) 80 %; Platelet Count 243 k/uL (150-450); RBC 3.41 m/uL (3.80-5.40); RDW 14.8 % (11.5-15.5); WBC 10.6 k/uL (3.8-10.6)
[2022-05-14] MEDS: ACETAMINOPHEN TAB 325 MG TAB PO SCH ×4 (05:25→23:56)
[2022-05-14 05:34] LABS: African American GFR (CKD) 86 (>60 ml/min/1.73 sqM); Anion Gap 1 mmol/L; Blood Urea Nitrogen 15 mg/dL (7-17); Calcium 8.6 mg/dL (8.4-10.2); Carbon Dioxide 33 mmol/L (22-30); Chloride 102 mmol/L (98-107); Glucose 111 mg/dL (74-99); Non-African American GFR(CKD) 75 (>60 ml/min/1.73 sqM); Potassium 3.8 mmol/L (3.5-5.1); Sodium 136 mmol/L (137-145)
[2022-05-14] MEDS: HYDROcodone/APAP 10-325MG 1 EACH TAB PO PRN ×2 (08:29→20:21)
[2022-05-14] MEDS: ATORVASTATIN 20 MG TAB PO SCH (08:29)
[2022-05-14] MEDS: CALCIUM CARB-VIT D 500 MG-5 MCG TAB PO SCH (08:29)
[2022-05-14] MEDS: PANTOPRAZOLE 40 MG TABLET PO SCH (08:29)
[2022-05-14] MEDS: ESCITALOPRAM 10 MG TAB PO SCH (08:30)
[2022-05-14] MEDS: HYDROXYCHLOROQUINE SULFATE 200 MG TAB PO SCH (08:30)
[2022-05-14] MEDS: FLUTICASONE 50MCG/SPRAY NASAL 16GM EA NOSTRIL SCH (08:32)
--- NOTE | 2022-05-14 08:42 | P.PN ---
Subjective Progress Note Date: 05/14/22 Principal diagnosis: Lumbar spondylosis L4-L5 and L5-S1 grade 2 spondylolisthesis Neurogenic claudication Patient seen and examined this morning. Patient was resting in bed. She states that her pain is managed on current regimen. Surgical incision is clean dry and intact. Hemovac present and patent, output 120 mL overnight. Patient states she has not been up since procedure. Informed patient that she will be working with physical therapy today. She needs to be up in chair for all meals. Patient verbalizes understanding. Assisted patient to her side, patient states relief of back pain. Patient denies any numbness or tingling to bilateral lower extremities. Patient has been afebrile, denies nausea/vomiting, or chest pain. Objective - Vital Signs Vital signs: Vital Signs Temp 99.1 F 05/14/22 08:00 Pulse 86 05/14/22 08:00 Resp 18 05/14/22 08:00 BP 104/46 05/14/22 08:00 Pulse Ox 92 L 05/14/22 08:00 FiO2 Intake & Output 05/13/22 05/14/22 05/14/22 18:59 06:59 18:59 Intake Total 3732 370 Output Total 1250 1720 Balance 2482 -1350 Weight 101 kg Intake: IV 2652 Intake, IV Titration 50 Amount ceFAZolin 2 gm In Sodium 50 Chloride 0.9% 50 ml @ 100 mls/hr IVPB Q8H [facility] Rx#: [id number] Oral 1080 320 Output: Drainage 220 Right Lower Back 220 Urine 850 1500 Stool 0 Estimated Blood Loss 400 Other: Voiding Method Indwelling Catheter - Exam Physical Examination General: The patient is awake and alert, in no acute distress Skin: Skin is warm and dry with no obvious rashes or lesions. Hairy patches absent, no dorsal skin dimples, no cafe au lait spots. Surgical incision to the lumbar region. Dressing is clean dry and intact. Hemovac present patent. Eye: Pupils are equal, round and reactive to light, extra-ocular movements are intact; there is normal conjunctiva bilaterally. Neck: The neck is supple, there is no tenderness and ROM intact. Cardiovascular: There is a regular rate and rhythm. No murmur, rub or gallop is appreciated. Respiratory: Lungs are clear to auscultation, respirations are non-labored, breath sounds are equal. Gastrointestinal: Soft, non-distended, non-tender abdomen. Back: There is no tenderness to palpation in the midline, paralumbar, parathoracic or buttocks region. There is no obvious deformity . Musculoskeletal: ROM limited secondary to pain and stiffness from surgical procedure. Muscle strength in all major muscle groups of bilateral upper extremities 5/5, bilateral lower extremities 4/5. Neurological: CN 2-12 intact. There are no obvious motor or sensory deficits. Movement and coordination equal and intact. Sensory exam to light touch intact C5-T1 and intact from L2-S1. Reflexes 2/4 in bilateral upper and lower extremities. Negative Hoffmans, babinski, and clonus signs. Psychiatric: Cooperative, appropriate mood & affect, normal judgment. - Labs CBC & Chem 7: 05/14/22 05:01 05/14/22 05:01 Labs: Abnormal Lab Results - Last 24 Hours (Table) 05/14/22 05/14/22 Range/Units 05:01 05:01 RBC 3.41 L (3.80-5.40) m/uL Hgb 10.4 L (11.4-16.0) gm/dL Hct 32.6 L (34.0-46.0) % Neutrophils # 8.5 H (1.3-7.7) k/uL Sodium 136 L (137-145) mmol/L Carbon Dioxide 33 H (22-30) mmol/L Glucose 111 H (74-99) mg/dL Assessment and Plan Assessment: Postop day 1: L4-S1 decompression and fusion Lumbar spondylosis L4-L5 and L5-S1 grade 2 spondylolisthesis Neurogenic claudication Plan: Plan: -Appreciate strategic consultant and team management. -Activity: Ambulate QID, OOB all meals, up and about, limit lifting bending twisting to less than 5 lbs. Use walker or cane if needed for stability. -Daily PT/OT, increase ambulation strength and balance. - LSO Brace when up and about, not needed in bed or chair -Pain control: Adequate at this time -Meds: reviewed -GI ppx: senna, Miralax -DC farrell when up and about, bedside commode if needed -DVT PPX: OK to restart Heparin tonight -Hygiene: Shower today. Maintain dressing clean and dry. Meticulous cleaning after BMs away from the incision site -Drains: Maintain for now. DC later today pending out put and PT -Encourage IS 10x/hr -Dispo: Anticipate discharge home tomorrow with homecare *I reviewed and discussed this case with my attending Dr. Mayes, whom has reviewed this chart and films and is in agreement with assessment and plan of care as outlined above. I have personally seen and examined the patient, performed the documentation and the assessment and plan as written. Number of minutes spent on the visit: 20m.
[2022-05-14] MEDS ORDERED: amLODIPine 5 MG TAB PO SCH (09:00)
--- NOTE | 2022-05-14 12:12 | P.PN ---
Subjective Progress Note Date: 05/14/22 Subjective: She is seen and examined at bedside. No acute events overnight. Claims that she still has some back soreness. Benson catheter has been discontinued. Patient is voiding, and having flatus. She denies any difficulty tolerating oral diet. She denies any chest pain, shortness of breath, abdominal pain. Pertinent positives and negatives as discussed above, a complete review of systems was performed and all other systems are negative. Vitals Signs Reviewed. General: nontoxic, no distress, appears at stated age Derm: warm, dry, incision dry, intact, and clean, drain in place Head: atraumatic, normocephalic, symmetric Eyes: EOMI, no lid lag, anicteric sclera, pupils equal round reactive to light ENT: Nose and ears atraumatic Neck: No thyromegaly, supple Mouth: no lip lesion, mucus membranes moist Cardiovascular: S1S2 reg, no murmur, no edema Lungs: clear to auscultation bilateral, no rhonchi, no rales, no wheeze, no accessory muscle use Abdominal: soft, nontender to palpation, no guarding, no appreciable organomegaly Ext: no gross muscle atrophy, muscle strength muscle strength 5 out of 5 in all 4 extremities, no contractures Neuro: CN II-XII grossly intact Psych: Alert, oriented, appropriate affect Assessment and Plan: Status post spinal surgery -Defer pain management and DVT prophylaxis to primary surgical service Hypertension - hold home medications given lower BP Chronic medical problems: Dyslipidemia Mood disorder Scleroderma - Continue home medications Thank you for allowing us to participate in the care of this pleasant patient. Do not hesitate to contact us with questions. Someone can be reached from the [facility] hospitalist group all hours of the day at [phone] or via [employer]. Objective - Vital Signs Vital signs: Vital Signs Temp 99.1 F 05/14/22 08:00 Pulse 78 05/14/22 08:50 Resp 18 05/14/22 08:00 BP 104/46 05/14/22 08:00 Pulse Ox 92 L 05/14/22 08:00 FiO2 Intake & Output 05/13/22 05/14/22 05/14/22 18:59 06:59 18:59 Intake Total 3732 370 Output Total 1250 1720 50 Balance 2482 -1350 -50 Weight 101 kg Intake: IV 2652 Intake, IV Titration 50 Amount ceFAZolin 2 gm In Sodium 50 Chloride 0.9% 50 ml @ 100 mls/hr IVPB Q8H [facility] Rx#: [id number] Oral 1080 320 Output: Drainage 220 Right Lower Back 220 Urine 850 1500 50 Stool 0 Estimated Blood Loss 400 Other: Voiding Method Indwelling Catheter - Labs CBC & Chem 7: 05/14/22 05:01 05/14/22 05:01 Labs: Abnormal Lab Results - Last 24 Hours (Table) 05/14/22 05/14/22 Range/Units 05:01 05:01 RBC 3.41 L (3.80-5.40) m/uL Hgb 10.4 L (11.4-16.0) gm/dL Hct 32.6 L (34.0-46.0) % Neutrophils # 8.5 H (1.3-7.7) k/uL Sodium 136 L (137-145) mmol/L Carbon Dioxide 33 H (22-30) mmol/L Glucose 111 H (74-99) mg/dL
--- NOTE | 2022-05-14 16:17 | P.OP ---
Date of Procedure: 05/13/22 Preoperative Diagnosis: 1. L4-5 Grade I spondylolisthesis 2. L4-S1 spondylosis 3. L4-S1 stenosis severe 4. Neurogenic claudication 5. Mechanical back pain Postoperative Diagnosis: 1. L4-5 Grade I spondylolisthesis 2. L4-S1 spondylosis 3. L4-S1 stenosis severe 4. Neurogenic claudication 5. Mechanical back pain Procedure(s) Performed: 1. L4-S1 posteriolateral and interbody fusion (19577, [id number]) 2. Segmental instrumentation L4-S1 (82799) 3. Insertion of biomechanical device L4-5 and L5-S1 ([id number]) 4. Bilateral laminectomy, complete facetectomy and foraminotomy for decompression and for deformity correction (31867, 79888) 5. Use of [employer] navigation for screw placement (01545) Use of [employer] Implants: -Globus Creo screw and mayank system -Amplify Dual X cage x1 -Autograft, allograft, MagnatOs, Anesthesia: GETA Surgeon: Darshan Mayes Medical Physicist #1: Elliott Koch (Was present and assisted in all aspects of the case from positioning to dressing placement) Estimated Blood Loss (ml): 450 IV fluids (ml): 2,500 Urine output (ml): 350 Pathology: none sent Condition: stable Disposition: PACU Indications for Procedure: Ms. Gaytan is presenting for evaluation of low back pain. It was my pleasure to have seen and examined Ms. Gaytan. In our visit today we have had a chance to go over subjective complaints, phys ical examination findings and treatments including the natural course history without intervention and various interventional options. The patients imaging demonstrates: XRay 5 views taken on 01/22/22 at [facility] of Lumbar Spine and Pelvis: this images are reviewed and demonstrates spondylolisthesis grade 1 to grade 2 of L4 on L5. This measures in flexion and extension films to go from 8.8 mm standing to 12.75 mm in flexion. There is foraminal stenosis related to this. L5-S1 shows spondylosis as well as disc height collapse at L4 5 and L5-S1. There is facet hypertrophy as well as facet arthrosis noted to this area. No acute fracture or dislocation is otherwise noted. AP pelvis demonstrates a congruent pelvis good hip replacement on the right with hardware placement and good position no fracture or dislocation XRay 5 views taken on 05/02/2020 at [facility] of Lumbar Spine and Pelvis: AP lateral flexion extension films of the lumbar spine obtained and reviewed in the office today. This demonstrates a grade 2 spondylolisthesis of L4 5. There is spondylosis at L5-S1. There is accentuation of the slip on flexion films and slight reduction and extension films. Overall alignment is fairly well maintained and sagittal coronal planes otherwise. There are no fractures to secretions or lesions noted. 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 There are no fractures or dislocations noted. The pelvis is level. MRI without contrast from 05/02/2019 at [facility] reveals: MRI demonstrates listhesis of L4 5 grade 2 with foraminal as well as central stenosis.There is grade I-II spondylolisthesis of L5-S1 as well. L4-5 measures 6 mm and L5-S1 measures 4 mm translation anterior. There is stenosis related to this as well as ligamental hypertrophy, facet hypertrophy and overgrowth. There are boggy facets at these levels as well. No fractures noted. No lesions noted. On physical exam, Ms. Gaytan demonstrates restricted lumbar ROM including flexion/extension/twisting due to pain. Patient does also demonstrate bilateral lower extremity weakness which is impacting her ability to complete most functional testing. Patient ambulating independently. I have explained to the patient that as their condition progresses it will cause further neurological deficits and eventual paralysis. Based on the patients imaging, physical exam, and the rapid progression and disabling nature of their symptoms, at this time I recommend surgery in the form or a: lumbar (L4-S1) Decompression and Fusion . I discussed the risk and benefits of this procedure at length with Ms. Gaytan. The patient agreed to considered pursuing the procedure abovementioned. Prior to surgery, she should follow up with her PCP (Cardio, ID, IM etc) for clearance. Questions were invited and answered, and the patient wishes to proceed as outlined below. Currently, I am recommendin.lumbar (L4-S1) Open Decompression and Fusion Description of Procedure: The patient was seen and examined in the preoperative area.All preoperative protocols were followed.Informed consent was obtained, risks and benefits of the procedure were discussed at length.Risks including bleeding infection damage to the surrounding tissue and risk of re-operation were discussed with the patient.Risk of anesthesia up to and including was discussed with the patient.These are outlined in the risk review.They were willing to accept these risks and all the risks of surgery.The patient was given a weight-based dose of antibiotics in the form of 2 g Ancef.The patient was seen and evaluated by the anesthesia team who deemed them fit for surgery. The site was marked, the patient was willing to proceed with the procedure.The patient was transferred to the operative suite by the Department of anesthesia. They were then drifted off to sleep by the department anesthesia and GETA was performed. The patient tolerated this well. Benson catheter was placed by nursing staff, a-traumatically. Once confirmation of lines and ventilation the patient was transferred to a prone Sameer table very carefully. All bony prominences including wrists, elbows, axilla, chest, hips, and thighs, and feet were padded very well. Special attention was paid to the genitalia, and these were padded accordingly. SCDs were placed on bilateral lower extremities and were connected. Arms were well padded and placed on arm boards up and out in the 90/90 position. Once in position, again we confirmed good ventilation capabilities and that lines were running appropriately. The patients Lumbar spine was then exposed. 1010s were placed outlining the incision site. Standard alcohol was used to clean the incision site and allowed to dry. C-arm was used to needle localize the pedicles at L4-S1 and bio-savanna the patient and confirm level for incision which was marked with a skin marker. Operative briefing was performed with all teams and everyone in agreement to proceed. The patient was then prepped and draped in a normal sterile fashion. Timeout was then performed, and all parties agreed with the procedure to be performed.Midline skin incision was made over the previously bio-marked area and dissection taken down over the SP of L3-S1. L4-S1 was taken out over facet joints and TPs and a penfield 4 used to savanna the L4 pedicle. Lateral image used to confirm levels. Once confirmed, screws were proceeded to be placed b/l at pedicles from L4-S1 using [employer] Navigation. An SP clamp was used, 3D C arm spin obtained and confirmed to be accurate. Once this was confirmed screws were placed using a navigated leah, navigated awl-tap and navigated cdl company driver. Once screws were placed they were confirmed to be in good position using AP and Lateral fluoroscopy. The wound was then irrigated. Screws were tested and all tested above 20 mA. We then proceeded to decompression and cage placement. Attention was then turned to inter-body fusion at L5-S1. Bilateral laminectomy, complete facetectomy and foraminotomy performed at L5-S1 using high speed leah and Kerrison rongure. The ligamentum was removed and dural sac decompressed. Exiting and traversing roots visualized and decompressed. Neural elements were then protected, and disc space accessed with an osteotome. Sequential shaving then done under lateral imaging and complete discectomy performed using silas, pituitary and curette. Once good bleeding endplates accomplished and good height temple with trials, a combination of autograft, allograft and synthetic placed anterior in the disc space. The cage was then selected and impacted into place under lateral imaging. The cage was then expanded restoring height, lordosis and alignment. The cage was backfilled with bone graft through a funnel. The speech pathology supervisor removed and the area inspected. Good cage placement, stable cage and no injuries. Area was irrigated copiously, and meticulous hemostasis achieved. The tubular retractor was then removed under direct visualization. Attention was then turned to inter-body fusion at L4-5. Bilateral laminectomy, complete facetectomy and foraminotomy performed at L4-5 using high speed leah and Kerrison rongure. The ligamentum was removed and dural sac decompressed. Exiting and traversing roots visualized and decompressed. Neural elements were then protected, and disc space accessed with an osteotome. Sequential shaving then done under lateral imaging and complete discectomy performed using silas, pituitary and curette. Once good bleeding endplates accomplished and good height temple with trials, a combination of autograft, allograft and synthetic placed anterior in the disc space. The cage was then selected and impacted into place under lateral imaging. The cage was then expanded restoring height, lordosis and alignment. The cage was backfilled with bone graft through a funnel. The speech pathology supervisor removed and area inspected. Good cage placement, stable cage and no injuries. Area was irrigated copiously, and meticulous hemostasis achieved. The tubular retractor was then removed under direct visualization. The wound and disc spaces irrigated and meticulous hemostasis achieved. Rods were then sized and selected and placed into S1 screws b/l. Set screws locked these in place and then sequentially reduced into L4 and L5 b/l for reduction of listhesis. This was accomplished. Set screws were then all placed and final tightened. A cross link was selected and placed and final tightened. TPs were then decorticated with high speed leah. The wound was the irrigated with 3L acne irrigation, 3L gentamicin irrigation and 3L NSS. Surgical was placed over the dura. Autograft and MagnatOs then placed in the posteriolateral gutters and impacted into place. Deep drain placed and secured to the skin. Final images confirmed good placement of hardware and good reduction of listhesis as well as temple of height and lordosis. Facia was then closed with #1 PDS. Deep subq closed with 0 Vicryl. Superficial subq closed with 2-0 Vicryl and skin with pta. Wound edges approximated very well. Wound was then cleaned with alcohol and dried. Wounds dressed with Optifoam dressings.The patient was then transferred off the table back to their hospital bed a-traumatically.They were extubated by the department of anesthesia.They were then transferred to PACU in stable condition having tolerated the procedure with no complications.
[2022-05-14] MEDS: MAGNESIUM OXIDE 400 MG TAB PO SCH (20:21)
[2022-05-15] MEDS: ACETAMINOPHEN TAB 325 MG TAB PO SCH ×2 (01:48→06:26)
[2022-05-15] MEDS: HYDROcodone/APAP 10-325MG 1 EACH TAB PO PRN (03:27)
[2022-05-15] MEDS: FLUTICASONE 50MCG/SPRAY NASAL 16GM EA NOSTRIL SCH (08:23)
[2022-05-15] MEDS: LACTATED RINGERS 1,000 ML IV SCH (08:24)
[2022-05-15] MEDS: PANTOPRAZOLE 40 MG TABLET PO SCH (08:30)
[2022-05-15] MEDS: ESCITALOPRAM 10 MG TAB PO SCH (08:30)
[2022-05-15] MEDS: HYDROXYCHLOROQUINE SULFATE 200 MG TAB PO SCH (08:30)
[2022-05-15] MEDS: CALCIUM CARB-VIT D 500 MG-5 MCG TAB PO SCH (08:30)
[2022-05-15] MEDS: ATORVASTATIN 20 MG TAB PO SCH (08:30)
[2022-05-15 08:32] VITALS: BP 81/44; PULSE 84; RESP 18; TEMP 98.7
--- NOTE | 2022-05-15 08:41 | P.PN ---
Subjective Progress Note Date: 05/15/22 Principal diagnosis: Lumbar spondylosis L4-L5 and L5-S1 grade 2 spondylolisthesis Neurogenic claudication Patient seen and examined this morning. Patient was resting in bed. She states that her pain is managed on current regimen. Surgical incision is clean dry and intact, hemovac removed and dressing has been changed. Patient states she has worked with PT and tolerated well. Patient states she feels comfortable with being discharged home with homecare. Patient denies any numbness or tingling to bilateral lower extremities. Patient has been afebrile, denies nausea/vomiting, or chest pain. Objective - Vital Signs Vital signs: Vital Signs Temp 100.2 F H 05/15/22 01:41 Pulse 85 05/15/22 01:41 Resp 20 05/15/22 01:41 BP 118/69 05/15/22 01:41 Pulse Ox 92 L 05/15/22 01:41 FiO2 Intake & Output 05/14/22 05/15/22 05/15/22 18:59 06:59 18:59 Intake Total 50 Output Total 700 280 Balance -650 -280 Intake: Intake, IV Titration 50 Amount ceFAZolin 2 gm In Sodium 50 Chloride 0.9% 50 ml @ 100 mls/hr IVPB Q8H [facility] Rx#: [id number] Output: Drainage 100 280 Right Lower Back 100 280 Urine 600 Other: Voiding Method Indwelling Catheter # Voids 1 - Exam Physical Examination General: The patient is awake and alert, in no acute distress Skin: Skin is warm and dry with no obvious rashes or lesions. Hairy patches absent, no dorsal skin dimples, no cafe au lait spots. Surgical incision to the lumbar region. Dressing is clean dry and intact. Eye: Pupils are equal, round and reactive to light, extra-ocular movements are intact; there is normal conjunctiva bilaterally. Neck: The neck is supple, there is no tenderness and ROM intact. Cardiovascular: There is a regular rate and rhythm. No murmur, rub or gallop is appreciated. Respiratory: Lungs are clear to auscultation, respirations are non-labored, breath sounds are equal. Gastrointestinal: Soft, non-distended, non-tender abdomen. Back: There is no tenderness to palpation in the midline, paralumbar, parathoracic or buttocks region. There is no obvious deformity . Musculoskeletal: ROM limited secondary to pain and stiffness from surgical procedure. Muscle strength in all major muscle groups of bilateral upper extremities 5/5, bilateral lower extremities 4/5. Neurological: CN 2-12 intact. There are no obvious motor or sensory deficits. Movement and coordination equal and intact. Sensory exam to light touch intact C5-T1 and intact from L2-S1. Reflexes 2/4 in bilateral upper and lower extremities. Negative Hoffmans, babinski, and clonus signs. Psychiatric: Cooperative, appropriate mood & affect, normal judgment. - Labs CBC & Chem 7: 05/14/22 05:01 05/14/22 05:01 Assessment and Plan Assessment: Postop day 2: L4-S1 decompression and fusion Lumbar spondylosis L4-L5 and L5-S1 grade 2 spondylolisthesis Neurogenic claudication Plan: Plan: -Appreciate employee relations consultant and team management. -Activity: Ambulate QID, OOB all meals, up and about, limit lifting bending twisting to less than 5 lbs. Use walker or cane if needed for stability. -Daily PT/OT, increase ambulation strength and balance. - LSO Brace when up and about, not needed in bed or chair -Pain control: Adequate at this time -Meds: reviewed -GI ppx: senna, Miralax -DVT PPX: heparin -Hygiene: Shower today. Maintain dressing clean and dry. Meticulous cleaning after BMs away from the incision site -Encourage IS 10x/hr -Dispo: Anticipate discharge home today with homecare *I reviewed and discussed this case with my attending Dr. Myaes, whom has reviewed this chart and films and is in agreement with assessment and plan of care as outlined above. I have personally seen and examined the patient, performed the documentation and the assessment and plan as written. Number of minutes spent on the visit: 20m.
--- NOTE | 2022-05-15 08:48 | P.DS ---
Providers Date of admission: 05/13/22 Expected date of discharge: 05/15/22 Attending physician: Darshan Mayes DO Consults: 05/13/22 13:26 Consult Physician Routine Consulting Provider: Yuly Luis Consult Reason/Comments: Medical Management s/p L4-S1 decompr/fusion Do you want consulting provider notified?: Yes Primary care physician: Carmen Bolden DO Hospital Course: Hospital Course: The patient was evaluated preoperatively and found to have the diagnosis of lumbar spondylosis, neurogenic claudication. They underwent appropriate preoperative care and were willing to undergo the intended procedure. They underwent a successful L4-S1 decompression and fusion, were recovered appropriately and sent to the floor. While on the floor they worked with physical therapy, occupational therapy and nursing to enhance their recovery experience. Their pain was well controlled through their stay and they were started on appropriate medications, DVT ppx modalities, activity and dietary needs. Daily labs were monitored closely, and transfusions were only used when necessary. Medicine as well as other consulting services have made their input and have helped with our team approach and multidisciplinary care. PT milestones have been met and passed and they have made the recommendation of home with home care for this patient and treating providers agree with this care path. The patient will be discharged home with appropriate medications, instructions and follow-up information and in stable condition. Patient Condition at Discharge: Good Plan - Discharge Summary Discharge Rx Participant: Yes New Discharge Prescriptions: New cefaDROXiL [Duricef] 500 mg PO Q12HR 3 Days #6 cap HYDROcodone/APAP 10-325MG [[place] 10-325] 1 tab PO Q4-6H PRN #56 tab PRN Reason: Pain Cyclobenzaprine [Flexeril] 5 mg PO TID PRN #90 tablet PRN Reason: Muscle Spasm Sennosides/Docusate Sodium [Senna Plus 8.6-50 mg Tablet] 1 each PO DAILY PRN #20 tablet PRN Reason: Constipation No Action Calcium Carbonate/Vitamin D3 [Calcium 600 mg-D3 10 Mcg (400 Iu)] 1 each PO DAILY Triamcinolone Acetonide [Triamcinolone Acetonide 0.055MG Nasal] 1 spray EA NOSTRIL DAILY hydrOXYzine HCL [Atarax] 25 mg PO TID PRN PRN Reason: Itching traMADol HCL 50 mg PO DAILY PRN PRN Reason: Pain Albuterol Inhaler [Ventolin Hfa Inhaler] 1 - 2 puff INHALATION Q6H PRN PRN Reason: sob Hydroxychloroquine Sulfate [Plaquenil] 200 mg PO QAM Omeprazole 20 mg PO QAM Acetaminophen Tab [Tylenol Tab] 1,000 mg PO BID PRN PRN Reason: Pain Vitamin E (Dl,Tocopheryl Acet) [Vitamin E (1000 Iu = 450 MG)] 1,000 unit PO DAILY Ubidecarenone [Co Q-10] 100 mg PO DAILY Magnesium 250 mg PO HS amLODIPine [Norvasc] 5 mg PO QAM Telmisartan/Hydrochlorothiazid [Telmisartan-Hctz 80-25 mg Tab] 1 tab PO QAM Atorvastatin [Lipitor] 20 mg PO DAILY Escitalopram [Lexapro] 10 mg PO QAM Discharge Medication List Albuterol Inhaler [Ventolin Hfa Inhaler] 1 - 2 puff INHALATION Q6H PRN 05/08/22 [History] Atorvastatin [Lipitor] 20 mg PO DAILY 05/08/22 [History] Calcium Carbonate/Vitamin D3 [Calcium 600 mg-D3 10 Mcg (400 Iu)] 1 each PO DAILY 05/08/22 [History] Escitalopram [Lexapro] 10 mg PO QAM 05/08/22 [History] Hydroxychloroquine Sulfate [Plaquenil] 200 mg PO QAM 05/08/22 [History] Magnesium 250 mg PO HS 05/08/22 [History] Omeprazole 20 mg PO QAM 05/08/22 [History] Telmisartan/Hydrochlorothiazid [Telmisartan-Hctz 80-25 mg Tab] 1 tab PO QAM 05/08/22 [History] Triamcinolone Acetonide [Triamcinolone Acetonide 0.055MG Nasal] 1 spray EA NOSTRIL DAILY 05/08/22 [History] Ubidecarenone [Co Q-10] 100 mg PO DAILY 05/08/22 [History] Vitamin E (Dl,Tocopheryl Acet) [Vitamin E (1000 Iu = 450 MG)] 1,000 unit PO DAILY 05/08/22 [History] amLODIPine [Norvasc] 5 mg PO QAM 05/08/22 [History] hydrOXYzine HCL [Atarax] 25 mg PO TID PRN 05/08/22 [History] traMADol HCL 50 mg PO DAILY PRN 05/08/22 [History] Acetaminophen Tab [Tylenol Tab] 1,000 mg PO BID PRN 05/09/22 [History] Cyclobenzaprine [Flexeril] 5 mg PO TID PRN #90 tablet 05/14/22 [Rx] HYDROcodone/APAP 10-325MG [[place] 10-325] 1 tab PO Q4-6H PRN #56 tab 05/14/22 [Rx] Sennosides/Docusate Sodium [Senna Plus 8.6-50 mg Tablet] 1 each PO DAILY PRN #20 tablet 05/14/22 [Rx] cefaDROXiL [Duricef] 500 mg PO Q12HR 3 Days #6 cap 05/14/22 [Rx] Follow up Appointment(s)/Referral(s): Darshan Mayes DO [Doctor of Osteopathic Medicine] - 2 Weeks Carmen Bolden DO [Primary Care Provider] - 1 Week Activity/Diet/Wound Care/Special Instructions: Spine Discharge and Recovery Instructions Date of Surgery: 05/13/2022 Diagnosis: Lumbar spondylosis, neurogenic claudication Procedure: L4 S1 decompression and fusion Medications: See medication list All medication refills should be obtained through your primary care doctor or your clinic spine surgeon. Please discuss prescription refills at your follow up appointment. Do not call the hospital for medication refills. Dressing: Leave your dressing in place for a total of 5 days post operatively. Then you may remove your dressing and leave open to air. Keep the area clean and if not able to keep area clean, then cover with sterile gauze and tape. Showering: You may shower 3 days after your procedure allowing soap and water to run over incision. Do not scrub. Do not soak. Blot dry. Follow up: Please confirm a follow up appointment with your surgeon 3 weeks post operatively. Please make an appointment to follow up with your PCP in 1-2 weeks after surgery for evaluation 3 phase, 3-week plan POST OP WEEKS 1-3 1. Lifting/carrying/pushing/pulling limited to less than 5 pounds. 2. Do not sit for longer than 15 minutes at one time. Get up and walk around. Prolonged sitting is NOT advised. If you lay down, see if you can tolerate laying down on you front (belly side) 3. Walk for periods of 15 minutes = 1 mile but no longer; do it multiple times times each day. 4. Ice your low back after activity. POST OP WEEKS 3-6 1. Lifting limited to less than 20 pounds. 2. Do not sit for longer than 30 minutes at a time. Frequently change positions. Use a sit-to stand workstation or take frequent breaks from sitting if you have returned to work. 3. Walk for 30 minutes each day. If possible, do these three or more times a day POST OP WEEKS 6+ At your 6-week appointment we will give you a physical therapy referral to focus on a core stabilization and strengthening program. You should also work on leg & buttock strengthening, hamstring & quadriceps stretching, and continue a low impact aerobic activity program such as swimming, walking, or riding a stationary bicycle. During the initial 6 weeks after your surgery, you are at the highest risk of re-injuring your spine. You should generally avoid BLTs (bending, lifting and twisting combination motions) and follow the above guidelines to reduce the chance of reinjury. You can anticipate post op appointments in our office at approximately 3 weeks and 6 weeks after your surgery. INCISION CARE: If your incision is not draining you do NOT need to cover it with a dressing. Keep your incision clean, dry and intact. In most cases, we apply skin glue, pat or sutures to the incision at the time of surgery. This will be like a crust or have the appearance of a scab and will fall off in time on its own. The stitches or pat need to be removed at 3 weeks post op appointment. You may begin to shower 3 days after surgery (this allows the glue to delcid well). However, please avoid scrubbing the incision site or peeling off any of the skin glue. This will ensure optimal healing of your incision. Also, during this time avoid soaking the incision area in water - this includes swimming pools, hot tubs or baths. No ointments, lotions or oils on the incision until your surgeon allows. Leave pat, sutures or glue in place. Neurological dysfunction that comes on suddenly can also be a sign of a stroke. Below some common symptoms of a stroke are listed: B - balance difficulty such as sudden onset walking or leaning to one side - NEW E - eye problem such as sudden double vision or trouble seeing on one side - NEW F - Facial weakness or numbness on one side - NEW A - Arm or leg weakness or numbness on one side - NEW S - Slurred speech or difficulty with word finding - NEW T - Time is BRAIN! Call 911 as soon as you recognize these symptoms Diet: Consume a regular diet rich in vegetables and lean protein such as chicken or fish. You should consume in a ratio of approximately 20% fats|40% carbohydrates|40%protein. Vegetables, sweet potatoes, brown rice or quinoa are examples of good carbohydrates. Chips, white bread, cookies and sweets/sugar are examples of bad carbohydrates. Limit your bad carbs, go wild with good carbs. "Life's Simple 7" Guidelines as per [place] [employer] These will help you reclaim your life after surgery and plumber's helper in your recovery, keeping in mind your restrictions. (1) Get Active. Physical activity can help people lose weight, control high blood pressure and cholesterol, feel emotionally better, and sleep better. (2) Control Cholesterol. Avoid a diet high in saturated fat, trans fat, & cholesterol. Limit whole milk & cream, ice cream, butter, egg yolks, processed meats (like sausage and hot dogs), and fatty meats. Choose healthy foods that are low in saturated fat, trans fat and cholesterol which include: Fruits and vegetables, fiber rich grain products (like whole grain pasta and brown rice), lean meat such as chicken, fish, nuts, seeds, and legumes. (3) Eat Better. Eat small portions. Shop at the grocery with a list and do not stray from it. Tips for a healthy diet include: Limit sodium intake to less than 1500mg daily, avoid prepackaged, processed, and fast foods, choose a diet rich in fruits, vegetables, and whole grain, high fiber foods, and limit saturated & cholesterol in your diet. (4) Manage Blood Pressure. If you have high blood pressure, you should have a cuff at home so that you can check your blood pressure regularly. Be sure you have a good cuff. An arm one is generally better than a wrist one. Bring the cuff to a doctor's appointment to validate that the measurements that your cuff are taking are accurate. Take your blood pressure twice daily when you are sitting down and relaxing. Record the numbers in a log and bring this log with you to your doctors' appointments. (5) Lose Weight if your BMI is above 25. A healthy BMI is between 19-25. To calculate Your BMI, you may use a Standard BMI Calculator on the NIH BMI website: <www.nhlbi.nih.gov/guidelines/obesity/BMI/bmicalc.htm>. Weigh oneself daily. If you are overweight, set a goal to lose weight. A pound a week loss if needed is a good target. (6) Reduce Blood Sugar. Limit foods and liquids with "added sugars." (Added sugars include sucrose, fructose, glucose, maltose, dextrose, high fructose corn syrup, corn syrup, concentrated fruit juice and honey). (7) Stop Smoking. If you smoke, quitting smoking is one of the best things that you can do for your health. Smoking increases your risk of heart attack, stroke, and peripheral vascular disease, which is a build-up of plaque in your arteries. Please discard all the cigarettes and lighters in your house. Have a plan for what you will do when you have the urge to smoke. Direct and second- hand smoke shortens your life as well as the lives of your family, friends and others around you. For your health and the health of those around you, please consider quitting! Proper Bending Body Mechanics: Maintain a wide stance with one foot slightly in front of the other. Keep your back straight. Bend utilizing the strength in your hips and knees. Do not bend at the waist. Maintain the lifted object at your waist-level close to your body. Avoid lifting weight that causes immediately pain or pain anywhere in the body afterwards. Smoking/Nicotine If there was ever one thing that you could do to increase your overall health, decrease your risk of cardiovascular problems by about 39% the second you make the choice, it is to STOP SMOKING. Your body's most instant gratification is the second you stop smoking. We have all heard the studies, read the articles but it is true, smoking is extremely bad for your overall health, and moreover it is detrimental to your bone health. Nicotine, IN ANY FORM, kills bone cells, prevents your body from healing frac tures, and significantly prolongs healing after surgery. In spine surgery specifically, it increases your risk of not healing your bones to create a fusion and increases your risk of having a revision surgery due to this up to 60%. I know it is hard. I know it feels impossible. But there are ways. Take control of your life. We are here to help you through it. And when you are ready, ask us and we can direct you to help if you desire. Use the START Plan to Quit Smoking (please visit the Helpguide.org website listed below for more information): S = Set a quit date. Choose a date within the next 2 weeks, so you have enough time to prepare without losing your motivation to quit. If you mainly smoke at work, quit on the weekend, so you have a few days to adjust to the change. T = Tell family, friends, and co-workers that you plan to quit. Let your friends and family in on your plan to quit smoking and tell them you need their support and encouragement to stop. Look for a quit andrew who wants to stop smoking as well. You can help each other get through the rough times. A = Anticipate and plan for the challenges you'll face while quitting. Most people who begin smoking again do so within the first 3 months. You can help yourself make it through by preparing ahead for common challenges, such as nicotine withdrawal and cigarette cravings. R = Remove cigarettes and other tobacco products from your home, car, and work. Throw away all your cigarettes (no emergency pack!), lighters, ashtrays, and matches. Wash your clothes and freshen up anything that smells like smoke. Shampoo your car, clean your drapes and carpet, and steam your furniture. T = Talk to your doctor about getting help to quit. Your doctor can prescribe medication to help with withdrawal and suggest other alternatives. If you can't see a doctor, you can get many products over the counter at your local pharmacy or grocery store, including the nicotine patch, nicotine lozenges, and nicotine gum. Resources for Quitting Smoking: <https://www.[place].gov/documents/[facility]/Quit_Tobacco_Resources_for_patients_313 480_7.pdf> Supplementation: Take recommended dosages of Vitamin D and Calcium to help fortify your bones and help them to heal. See your health maintenance packet for dosages and recommended levels. DVT/VTE prophylaxis: You will be given compression stockings from the hospital. Wear these daily for the first two weeks after surgery. You may take them off at night. You may be prescribed a medication to help thin your blood. Take this as directed. If you are not prescribed this medication, early and frequent ambulation has been shown to be the best prophylaxis to deep vein thrombosis and sequelae related to this event. Discharge Disposition: HOME WITH HOME HEALTH SERVICES
[2022-05-15 09:41] LABS: Basophils % (A) 0 %; Eosinophils # (A) 0.2 k/uL (0-0.7); Eosinophils % (A) 2 %; HCT 32.7 % (34.0-46.0); HGB 10.4 gm/dL (11.4-16.0); Lymphocytes # (A) 0.8 k/uL (1.0-4.8); Lymphocytes % (A) 8 %; MCH 30.5 pg (25.0-35.0); MCHC 31.9 g/dL (31.0-37.0); MCV 95.7 fL (80.0-100.0); Mean Platelet Volume 7.6; Monocytes # (A) 0.6 k/uL (0-1.0); Monocytes % (A) 6 %; Neutrophils % (A) 80 %; Platelet Count 245 k/uL (150-450); RBC 3.41 m/uL (3.80-5.40); RDW 14.6 % (11.5-15.5); WBC 9.9 k/uL (3.8-10.6)
[2022-05-15 09:47] LABS: African American GFR (CKD) >90 (>60 ml/min/1.73 sqM); Anion Gap 3 mmol/L; Blood Urea Nitrogen 16 mg/dL (7-17); Calcium 8.9 mg/dL (8.4-10.2); Carbon Dioxide 32 mmol/L (22-30); Chloride 101 mmol/L (98-107); Glucose 115 mg/dL (74-99); Non-African American GFR(CKD) 87 (>60 ml/min/1.73 sqM); Potassium 3.8 mmol/L (3.5-5.1); Sodium 136 mmol/L (137-145)
--- NOTE | 2022-05-15 10:24 | P.PN ---
Subjective Progress Note Date: 05/15/22 Subjective: She is seen and examined at bedside. No acute events overnight. She denies any difficulty tolerating oral diet. She denies any chest pain, shortness of breath, abdominal pain. Pertinent positives and negatives as discussed above, a complete review of systems was performed and all other systems are negative. Vitals Signs Reviewed. General: nontoxic, no distress, appears at stated age Derm: warm, dry, incision dry, intact, and clean, drain in place Head: atraumatic, normocephalic, symmetric Eyes: EOMI, no lid lag, anicteric sclera, pupils equal round reactive to light ENT: Nose and ears atraumatic Neck: No thyromegaly, supple Mouth: no lip lesion, mucus membranes moist Cardiovascular: S1S2 reg, no murmur, no edema Lungs: clear to auscultation bilateral, no rhonchi, no rales, no wheeze, no accessory muscle use Abdominal: soft, nontender to palpation, no guarding, no appreciable organomegaly Ext: no gross muscle atrophy, muscle strength muscle strength 5 out of 5 in all 4 extremities, no contractures Neuro: CN II-XII grossly intact Psych: Alert, oriented, appropriate affect Assessment and Plan: Status post spinal surgery -Defer pain management and DVT prophylaxis to primary surgical service Hypertension - hold home medications given lower BP, will need to resume if needed as outpatient Chronic medical problems: Dyslipidemia Mood disorder Scleroderma - Continue home medications Patient is medically optimized for discharge home. Thank you for allowing us to participate in the care of this pleasant patient. Do not hesitate to contact us with questions. Someone can be reached from the [facility] hospitalist group all hours of the day at [phone] or via [employer]. Objective - Vital Signs Vital signs: Vital Signs Temp 98.7 F 05/15/22 07:30 Pulse 84 05/15/22 07:30 Resp 18 05/15/22 07:30 BP 81/44 05/15/22 07:30 Pulse Ox 91 L 05/15/22 07:30 FiO2 Intake & Output 05/14/22 05/15/22 05/15/22 18:59 06:59 18:59 Intake Total 50 Output Total 700 280 Balance -650 -280 Intake: Intake, IV Titration 50 Amount ceFAZolin 2 gm In Sodium 50 Chloride 0.9% 50 ml @ 100 mls/hr IVPB Q8H [facility] Rx#: [id number] Output: Drainage 100 280 Right Lower Back 100 280 Urine 600 Other: Voiding Method Indwelling Catheter # Voids 1 1 - Labs CBC & Chem 7: 05/15/22 09:20 05/15/22 09:20 Labs: Abnormal Lab Results - Last 24 Hours (Table) 05/15/22 05/15/22 Range/Units 09:20 09:20 RBC 3.41 L (3.80-5.40) m/uL Hgb 10.4 L (11.4-16.0) gm/dL Hct 32.7 L (34.0-46.0) % Neutrophils # 8.0 H (1.3-7.7) k/uL Lymphocytes # 0.8 L (1.0-4.8) k/uL Sodium 136 L (137-145) mmol/L Carbon Dioxide 32 H (22-30) mmol/L Glucose 115 H (74-99) mg/dL
== END 2022-05-15 11:01 | disposition home health service (06) ==
LOC: OR 07:55 → 4SSUR 13:34 → OR 05-15 11:01
PROVIDERS: ATTEND Orthopaedic Surgery
DX: M43.17 Spondylolisthesis, lumbosacral region (principal); M47.817 Spondylosis without myelopathy or radiculopathy, lumbosacral region; M48.07 Spinal stenosis, lumbosacral region; J45.909 Unspecified asthma, uncomplicated; E78.5 Hyperlipidemia, unspecified; I10 Essential (primary) hypertension; Z85.820 Personal history of malignant melanoma of skin; Z96.641 Presence of right artificial hip joint; Z87.891 Personal history of nicotine dependence; Z79.51 Long term (current) use of inhaled steroids; Z45.2 Encounter for adjustment and management of vascular access device; Z79.899 Other long term (current) drug therapy; Z88.5 Allergy status to narcotic agent
CPT/HCPCS: 94640; 97161; 97166; 80048; 85025; 85610; 85730; 72100; 72131; 22633; 22634; 22842; 22853; 61783; J3370; J1580; J0690 ×3; J2405; J1170; 36415; 86850; 86900; 86901